=== PATIENT | female | born 1985 | race Caucasian/White ===

== ENCOUNTER 2019-10-28 08:48 | Day surgery (SDC) | payer OTHER ==
[~2019-10-28 08:48] MED LIST: ENOXAPARIN 30 MG/0.3 ML SYRINGE SUBQ ONE
[2019-10-28] MEDS ORDERED: GLYCOPYRROLATE 1 MG/5 ML VIAL IVP ONE (08:49)
[2019-10-28] MEDS ORDERED: NEOSTIGMINE 1 MG/1 ML 10 ML MDV IVP ONE (08:49)
[2019-10-28] MEDS ORDERED: MIDAZOLAM 2 MG/2 ML VIAL IVP ONE (08:49)
[2019-10-28] MEDS ORDERED: DEXAMETHASONE 4 MG/ML VIAL IVP ONE (08:49)
[2019-10-28] MEDS ORDERED: ROCURONIUM 50 MG/5 ML VIAL IVP ONE (08:49)
[2019-10-28] MEDS ORDERED: LIDOCAINE 2% 10 ML MDV SUBQ ONE (08:49)
[2019-10-28] MEDS ORDERED: PROPOFOL 200 MG/20 ML VIAL IVP ONE (08:49)
[2019-10-28] MEDS ORDERED: fentaNYL 100 MCG/2 ML VIAL IVP ONE (08:49)
[2019-10-28] MEDS ORDERED: CEFAZOLIN SODIUM IN 0.9 % NACL 2 GM/100 ML BAG IV ONE (08:54)
[2019-10-28] MEDS ORDERED: LACTATED RINGERS 1,000 ML IV ONE ×2 (08:56→13:30)
[2019-10-28 10:08] LABS: HCG UR QUAL NEGATIVE
--- NOTE | 2019-10-28 10:35 | ANESTHESIA ---
Pre-Anesthesia VS, & Labs - Diagnosis cholecystitis, cholelithiasis - Procedure Lap Narda Vital Signs: Temp Pulse Resp BP Pulse Ox 36.6 C 88 16 107/59 L 88 L 10/28/19 09:05 10/28/19 09:05 10/28/19 09:05 10/28/19 09:05 10/28/19 09:05 Height 4 ft 11 in Weight (kg) 61.7 kg - NPO Last Fluid Intake: 4oz of apple juice 0650 - Is Patient ?: No Home Medications and Allergies Home Medications: Ambulatory Orders Ethinyl Estradiol/Drospirenone [Kat 28 Tablet] 1 each PO DAILY 10/26/19 Hydrocodone/Acetaminophen [Hydrocodone-Acetamin 5-325 mg] 1 - 2 each PO Q6HR PRN 10/26/19 Ondansetron [Ondansetron Odt] 4 mg PO Q6HR PRN 10/26/19 Ethinyl Estradiol/Drospirenone [Kat 28 Tablet] 1 each PO DAILY 10/26/19 Hydrocodone/Acetaminophen [Hydrocodone-Acetamin 5-325 mg] 1 - 2 each PO Q6HR PRN 10/26/19 Ondansetron [Ondansetron Odt] 4 mg PO Q6HR PRN 10/26/19 Allergies/Adverse Reactions: Allergies Allergy/AdvReac Type Severity Reaction Status Date / Time latex Allergy Itching Verified 10/28/19 09:12 Anes History & Medical History - Anesthetic History Family history of Anesthesia Complications: Denies Family history of Malignant Hyperthermia: Denies - Medical History Cardiovascular: reports: None Pulmonary: reports: None Gastrointestinal: reports: GERD (r/t pain with gall bladder) Urinary: reports: None Neuro: reports: None Musculoskeletal: reports: None Endocrine/Autoimmune: reports: None Blood Disorders: reports: None Skin: reports: None Smoking Status: Never smoker Psychosocial: reports: No issues indicated - Surgical History Gynecologic: section Exam General: Alert, Oriented x3, Cooperative, No acute distress Dental: WNL Mouth Openin Fingerbreadth Neck Mobility: Normal Mallampati classification: I Thyromental Distance: greater than 6 cm Respiratory: Lungs clear, Normal breath sounds, No respiratory distress, No accessory muscle use Cardiovascular: Regular rate, Normal S1, Normal S2, No murmurs Mental/Cognitive Status: Alert/Oriented X3, Normal for patient Plan Anesthesia Type: General Consent for Procedure(s) Verified and Reviewed: Yes Code Status: Attempt Resuscitation ASA classification: 1-Healthy patient Is this case an emergency?: No
[2019-10-28] MEDS ORDERED: LIDOCAINE 1%-EPI 1:100000 20 ML MDV ONE (11:44)
[2019-10-28] MEDS ORDERED: LIDOCAINE 1%-EPI 1:100000 20 ML MDV SUBQ ONE ×2 (13:07)
[2019-10-28] MEDS ORDERED: oxyCODONE 5 MG TABLET PO PRN (13:24)
[2019-10-28] MEDS ORDERED: IBUPROFEN 600 MG TABLET PO PRN (13:24)
[2019-10-28] MEDS ORDERED: ONDANSETRON 4 MG/2 ML VIAL IVP PRN (13:24)
[2019-10-28] MEDS ORDERED: ACETAMINOPHEN 325 MG TABLET PO PRN (13:24)
--- NOTE | 2019-10-28 13:27 | IMMEDIATE POSTOPERATIVE NOTE ---
Immediate Postoperative Note - Procedure Note Procedure Date: 10/28/19 Pre-Op Diagnosis: cholecystitis/lithiasis Procedure: Lap mariann Post-Op Diagnosis: Same Primary Surgeon: Sunil Anesthesia Type: General ET tube, Local Findings: Mildly inflamed gallbladder w/multiple cholecystic adhesions Complications: No complications Estimated Blood Loss (in cc): 25 Specimens and Cultures: Gallbladder Plan of Care: See order set
[2019-10-28] MEDS: HYDROmorphone 1 MG/ML CARPUJECT ONE ×3 (13:54→14:06)
[2019-10-28] MEDS ORDERED: ACETAMINOPHEN 325 MG TABLET PO ONE (14:39)
[2019-10-28] MEDS ORDERED: IBUPROFEN 600 MG TABLET PO ONE (14:39)
[2019-10-28] MEDS ORDERED: oxyCODONE 5 MG TABLET ONE (14:40)
[2019-10-28 15:25] VITALS: BP 102/66
--- NOTE | 2019-10-28 17:43 | OPERATIVE REPORT ---
DATE OF SERVICE: 10/28/2019 Physician: Dave Barber DO PREOPERATIVE DIAGNOSES AND INDICATIONS 1. Cholecystitis. 2. Cholelithiasis. POSTOPERATIVE DIAGNOSES AND INDICATIONS 1. Cholecystitis. 2. Cholelithiasis. PROCEDURE PERFORMED: Laparoscopic cholecystectomy. SURGEON: Dave Barber DO ANESTHESIA PROVIDER: Vladislav Nascimento CRNA. ANESTHESIA: General endotracheal tube with local assist. ESTIMATED BLOOD LOSS: 25 mL. FINDINGS: Patient's gallbladder was mildly inflamed, but there was quite a few pericholecystic infla mmatory adhesions. In dissecting the gallbladder out of the liver bed, there was a bleeder that requ ired a clip for hemostasis and otherwise there were no untoward complications. CONDITION: Stable upon transport to recovery. HISTORY: Patient is a 33-year-old female with signs and symptoms consistent with cholecysti tis. Ultrasound evidence indicated cholelithiasis. She did not have jaundice, acholic stools or zulma kened urine. There were no hepatic enzyme elevations preoperatively. DESCRIPTION OF PROCEDURE: Patient was taken to the operating room and under the above-mentioned anes thetic, prepped and draped in the usual sterile manner. A vertically oriented intraumbilical incisio n was utilized to gain entrance into the abdominal cavity by way of the 12 mm Visiport system. Once in the abdominal cavity, the pneumoperitoneum was created and the 3 working ports were placed under d irect vision. Subsequently, the fundus of the gallbladder was identified and placed on cephalad trac tion. Multiple pericholecystic inflammatory adhesions were carefully stripped away and some were div ided by electrocautery. The infundibulum was identified and placed on gentle anterolateral traction and further dissection revealed the cystic duct and this was mobilized down to its junction with the common bile duct. At no time was the common bile duct manipulated, injured or otherwise harmed. The cystic artery was likewise identified and once both structures were clearly visible, mobilized and sk eletonized as well, the cystic duct was stapled at the neck of the gallbladder and 2 additional stapl es below that and it was then divided between the top 2 mitchell. The cystic artery was likewise trip ly stapled and divided between the top 2 mitchell. The gallbladder was then excised out of the liver bed using electrocautery and, as mentioned before, a liver bed bleeder was encountered and this requi red a staple for control. Eventually, the gallbladder was placed in an EndoCatch bag and brought out through the umbilicus in the usual manner. Re-examination of the liver bed revealed no evidence for bleeding or bile leak and a piece of Surgicel was placed for added hemostatic and bacteriostatic sec urity. As much of the insufflated, pneumoperitoneum was evacuated following removal of the working p orts and there was no bleeding at the working port sites. Closure was accomplished with 4-0 undyed M onocryl for all incisions. Dermabond was applied. Patient transported to recovery in stable conditi on. TD: 10/28/2019 13:34
== END 2019-10-28 08:49 | disposition home or self-care (01) ==
LOC: SDS 08:48
PROVIDERS: ATTEND Surgery
PROC: 0FT44ZZ Resection of Gallbladder, Percutaneous Endoscopic Approach (ICD-10-PCS; principal; 2019-10-28 10:15)
DX: K80.10 Calculus of gallbladder with chronic cholecystitis without obstruction (principal)
CPT/HCPCS: 47562; 81025; A9270; J0690; J1170; J1650; J7120